=== PATIENT | male | born 1965 | race Caucasian/White ===

== ENCOUNTER → 2019-08-18 | Outpatient (CLI) | payer BC ==
--- NOTE | 2019-08-19 18:27 | US ---
EXAMINATION TYPE: US kidneys/renal and bladder DATE OF EXAM: 08/18/2019 COMPARISON: NONE CLINICAL HISTORY: N18.1 STAGE 1 CKD. CKD stage 1 EXAM MEASUREMENTS: Right Kidney: 9.1 x 4.5 x 4.4 cm Left Kidney: 12.1 x 5.7 x 5.2 cm Right Kidney: small in size compared to left kidney Left Kidney: 1.3 x 1.7 x 0.9cm anechoic area mid pole Bladder: wnl Bilateral Jets seen: yes There is no evidence for hydronephrosis at this point in time. No nephrolithiasis is seen. No kylie s are identified. The urinary bladder is anechoic. Bilateral ureteral jets are seen. IMPRESSION: 1. No sonographic evidence of nephrolithiasis or hydronephrosis. 2. Simple appearing benign Bosniak type I left renal cyst measuring 1.7 cm.
== END | disposition home or self-care (01) ==
LOC: RADUSWWP 16:07
PROVIDERS: ATTEND Internal Medicine
DX: N28.1 Cyst of kidney, acquired (principal); N18.1 Chronic kidney disease, stage 1
CPT/HCPCS: 76770

== ENCOUNTER → 2021-08-20 | Outpatient (CLI) | payer BC ==
--- NOTE | 2021-08-21 08:11 | US ---
EXAMINATION TYPE: US kidneys/renal and bladder DATE OF EXAM: 08/20/2021 COMPARISON: NONE CLINICAL HISTORY: 56-year-old male R94.4 ABN KIDNEY FUNCTIONS. TECHNIQUE: Multiple sonographic images of the kidneys and bladder are obtained. FINDINGS: EXAM MEASUREMENTS: Right Kidney: 10.2 x 4.7 x 4.3 cm Left Kidney: 11.7 x 3.8 x 4.6 cm Right Kidney: No hydronephrosis or masses seen Left Kidney: 1.7cm centrally located cyst at the upper to midpole. No hydronephrosis. Bladder: wnl Bilateral Jets seen: Yes IMPRESSION: 1. No hydronephrosis. 2. Incidentally, a 1.7 cm centrally located cyst of the left kidney.
== END | disposition home or self-care (01) ==
LOC: RADUSWWP 15:33
PROVIDERS: ATTEND Internal Medicine
DX: N28.1 Cyst of kidney, acquired (principal)
CPT/HCPCS: 76770

== ENCOUNTER → 2023-08-18 | Outpatient (CLI) | payer BC ==
--- NOTE | 2023-08-18 11:33 | CA ---
Transthoracic Echo Report Name: Lenny Bernal Age: 58 Gender: M : 1965 Exam Date: 08/18/2023 08:51 Exam Location: [facility] Ht (in): 75 Wt (lb): 210 Ordering Physician: Sachi Rosen MD Attending/Referring Phys: Nuclear Auxiliary Operator Vale Archibald RDCS Procedure CPT: Indications: I25.810 ARTERIOSCLEROSIS I65.23 Cardiac Hx: Technical Quality: Fair Contrast 1: Total Dose (mL): Contrast 2: Total Dose (mL): MEASUREMENTS (Male / Female) Normal Values 2D ECHO LV Diastolic Diameter PLAX 4.3 cm 4.2 - 5.9 / 3.9 - 5.3 cm LV Systolic Diameter PLAX 2.8 cm IVS Diastolic Thickness 1.1 cm 0.6 - 1.0 / 0.6 - 0.9 cm LVPW Diastolic Thickness 1.2 cm 0.6 - 1.0 / 0.6 - 0.9 cm LV Relative Wall Thickness 0.5 RV Internal Dim ED PLAX 3.7 cm LA Volume 45.6 cm??? 18 - 58 / 22 - 52 cm??? LA Volume Index 20.2 cm???/m??? 16 - 28 cm???/m??? M-MODE Aortic Root Diameter MM 3.3 cm LA Systolic Diameter MM 3.5 cm LA Ao Ratio MM 1.0 AV Cusp Separation MM 2.1 cm DOPPLER AV Peak Velocity 113.0 cm/s AV Peak Gradient 5.1 mmHg AV Mean Velocity 85.5 cm/s AV Mean Gradient 3.1 mmHg AV Velocity Time Integral 23.4 cm LVOT Peak Velocity 87.5 cm/s LVOT Peak Gradient 3.1 mmHg LVOT Velocity Time Integral 20.7 cm MV Area PHT 3.5 cm??? Mitral E Point Velocity 56.2 cm/s Mitral A Point Velocity 74.2 cm/s Mitral E to A Ratio 0.8 MV Deceleration Time 214.2 ms MV E' Velocity 5.8 cm/s Mitral E to MV E' Ratio 9.7 FINDINGS Left Ventricle Mildly increased left ventricular wall thickness. Left ventricular cavity size normal. Left ventricular ejection fraction is estimated at 55-60 %. Right Ventricle Mild right ventricular dilatation. Right ventricular systolic pressure within normal limits. Right Atrium Normal right atrial size. Left Atrium Normal left atrial size. Mitral Valve Structurally normal mitral valve. Mild mitral regurgitation. Aortic Valve Trileaflet aortic valve. No aortic valve stenosis or regurgitation. Tricuspid Valve Structurally normal tricuspid valve. Mild tricuspid regurgitation. Pulmonic Valve Structurally normal pulmonic valve. Pericardium No pericardial effusion. Aorta Normal size aortic root and proximal ascending aorta. CONCLUSIONS 1. Normal left ventricle size and systolic function 2. Mild mitral and tricuspid regurgitation Previewed by: Dr. Apryl Chavarria MD (Electronically Signed) Final Date: 18 August 2023 11:33
--- NOTE | 2023-08-18 11:34 | US ---
EXAMINATION TYPE: US carotid duplex BILAT DATE OF EXAM: 08/18/2023 COMPARISON: NONE CLINICAL INDICATION: Male, 58 years old with history of I25.810 ARTERIOSCLEROSIS I65.23; HX of 2 hear t attacks in 2003 and 2010 TECHNIQUE: Carotid duplex ultrasound examination. Indirect Doppler criteria was utilized. FINDINGS: EXAM MEASUREMENTS: RIGHT: Peak Systolic Velocity (PSV) cm/sec ----- Right CCA: 58.2 ----- Right ICA: 63.6 ----- Right ECA: 113 ICA/CCA ratio: 1.1 RIGHT: End Diastole cm/sec ----- Right CCA: 17.2 ----- Right ICA: 21.4 ----- Right ECA: 12.5 LEFT: Peak Systolic Velocity (PSV) cm/sec ----- Left CCA: 84.4 ----- Left ICA: 62.0 ----- Left ECA: 116.0 ICA/CCA ratio: 0.8 LEFT: End Diastole cm/sec ----- Left CCA: 23.4 ----- Left ICA: 20.6 ----- Left ECA: 17.4 VERTEBRALS (direction of flow): Right Vertebral: Antegrade Left Vertebral: Antegrade Rhythm: Normal SEAMER PANTY HOSE NOTES: No elevated velocities IMPRESSION: Less than 50% stenosis of the bilateral carotid bifurcations. Criteria for Assigning % of Stenosis / Diameter reduction (Estimation based on the indirect measurements of the internal carotid artery velocities (ICA PSV). 1. Normal (no stenosis)=ICA PSV < 125 cm/s: ratio < 2.0: ICA EDV<40 cm/s. 2. Less than 50% stenosis=ICA PSV < 125 cm/s: ratio < 2.0: ICA EDV<40 cm/s. 3. 50 to 69% stenosis=ICA PSV of 125 to 230 cm/s: ration 2.0 ? 4.0: ICA EDV 40-100 cm/s. 4. Greater than 70% stenosis to near occlusion= ICA PSV > 230 cm/s: ratio > 4.0: ICA EDV > 100 cm/s. 5. Near occlusion= ICA PSV velocities may be low or undetectable: variable ratio and ICA EDV. 6. Total occlusion=unable to detect flow.
--- NOTE | 2023-08-18 11:47 | XR ---
EXAMINATION TYPE: XR foot complete RT DATE OF EXAM: 08/18/2023 COMPARISON: NONE HISTORY: Pain TECHNIQUE: Three views are submitted. FINDINGS: There is deformity involving the base proximal phalanx second digit extending to the articular surfac e compatible mildly displaced fracture. Hallux valgus deformity first digit with [id number] atrophic arthropathy. Diffuse osteopenia. Postsurgical change involving the calcaneus. IMPRESSION: 1. There is a mildly displaced intra-articular fracture base proximal phalanx second digit of indete rminate age. Correlate with point tenderness. 2. 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
--- NOTE | 2023-08-18 12:47 | NM ---
EXAMINATION TYPE: NM stress cardiolite complete DATE OF EXAM: 08/18/2023 COMPARISON: NONE CLINICAL INDICATION: Male, 58 years old with history of I25.810 ARTERIOSCLEROSIS I65.23; TECHNIQUE: After the intravenous administration of 9 mCi Tc 99m Sestamibi - Rest images obtained 49 minutes post injection. The patient exercised using a VALARIE protocol and 1 minute prior to peak exe rcise was injected with 25.3 mCi Tc 99m Sestamibi - Stress images obtained 20 minutes post injection. FINDINGS: Targeted heart rate was achieved during performance of the study. Review of stress and rest SPECT tung ges demonstrates no distinct reversible perfusion abnormality. Fixed defect involving the inferior wa ll. Gated analysis shows normal wall motion with an estimated left ventricular ejection fraction of 7 3 %. IMPRESSION: No scintigraphic evidence for reversible ischemia
--- NOTE | 2023-08-18 12:53 | CA ---
Exercise Nuclear Stress Test Report Name: Lenny Bernal Exam Date: 08/18/2023 09:59 Exam Location: [facility] Ht (in): 75 Wt (lb): 210 BSA: 2.24 Ordering Phys: Sachi Levin MD Referring Phys: SACHI LEVIN,, Technologist: LOYDA,, Age: 58 Gender: M : 1965 Procedure CPT: Indications: I25.810 ARTERIOSCLEROSIS I65.23 ICD-10 Codes: Patient History: History of [place] and hypertension Medications: Meds past 24 hrs: Pretest Chest Pain: STRESS TEST Evens Protocol Exercise Duration (min:sec): 10:[address] Depressions (mm): Angina Score: Ordaz Score: Resting HR (bpm): 80 Peak HR (bpm): 166 Resting BP (mmHg): 110 / 87 Peak BP (mmHg): 192 / 90 MPHR: 163 Target HR: 139 % MPHR: 102 METS: 12.1 Total Dose: Peak Dose: Atropine: Double Product: [id number] BP Response: Stress Termination: Reached target heart rate Stress Symptoms: No chest pain or symptoms Stress Summary: The patient's target heart rate was achieved ECG ANALYSIS Resting ECG: Sinus rhythm. Normal conduction. No arrhythmias. Normal repolarization. Stress ECG: No ECG evidence of ischemia with exercise. Atrial premature contraction. CONCLUSIONS 1. Good exercise tolerance with normal electrocardiographic response to exercise and rare PACs 2. Nuclear images will be reported separately Dr. Apryl Chavarria MD (Electronically Signed) Final Date: 18 August 2023 12:53
== END | disposition home or self-care (01) ==
LOC: RADNMMAIN 08:12
PROVIDERS: ATTEND Internal Medicine
DX: I65.23 Occlusion and stenosis of bilateral carotid arteries (principal); I34.0 Nonrheumatic mitral (valve) insufficiency; I36.1 Nonrheumatic tricuspid (valve) insufficiency; M19.071 Primary osteoarthritis, right ankle and foot; M24.871 Other specific joint derangements of right ankle, not elsewhere classified; I25.810 Atherosclerosis of coronary artery bypass graft(s) without angina pectoris; I25.2 Old myocardial infarction; I10 Essential (primary) hypertension
CPT/HCPCS: 93017; 93306; 73630; 93880; 78452; A9500